=== PATIENT | female | born 1990 | race Two or more races ===

== ENCOUNTER 2022-12-31 14:20 | Inpatient (IN) ==
[2022-12-31] MEDS ORDERED: METHYLERGONOVINE MALEATE 0.2 MG/ML AMP IM PRN (14:59)
[2022-12-31] MEDS ORDERED: OXYTOCIN 30 UNITS/500 ML BAG IV PRN ×3 (14:59→21:05)
[2022-12-31] MEDS ORDERED: LACTATED RINGER'S 1,000 ML IV PRN (14:59)
[2022-12-31] MEDS ORDERED: LIDOCAINE 1% LOCAL 20 ML VIAL INFIL PRN (14:59)
[2022-12-31 15:53] LABS: Hematocrit (blood only) 34.1 % (37.0-47.0); Hemoglobin 11.7 g/dl (12.0-16.0); Mean Corpuscular Hemoglobin 31.7 pg (25.0-34.0); Mean Corpuscular Hgb Conc 34.3 g/dL (32.0-36.0); Mean Corpuscular Volume 92.4 fL (80.0-100.0); Mean Platelet Volume 10.4 fL (9.4-12.4); Platelet Count 210 K/uL (130-400); RDW Coefficient of Variation 12.4 % (11.5-14.5); RDW Standard Deviation 41.5 fL (36.4-46.3); Red Blood Count 3.69 M/uL (4.20-5.40); White Blood Count 8.66 K/ul (4.8-10.8)
[2022-12-31 16:50] LABS: Rubella IgG Ab Non Immune (Immune)
[2022-12-31] MEDS ORDERED: HYDROCORTISONE ACETATE 25 MG SUPP PR PRN (21:05)
[2022-12-31] MEDS ORDERED: bisacodyL 10 MG SUPP PR PRN (21:05)
[2022-12-31] MEDS ORDERED: oxyCODONE/ACETAMINOPHEN 5mg/325mg TAB PO PRN (21:05)
[2022-12-31] MEDS ORDERED: ACETAMINOPHEN 325 MG TAB PO PRN (21:05)
[2022-12-31] MEDS ORDERED: ACETAMINOPHEN W/CODEINE #3 1 TAB PO PRN (21:05)
[2022-12-31] MEDS ORDERED: DIPHTHERIA/TETANUS/PERTUSSIS Vaccine (Tdap, Age 7+yrs) 0.5mL SYR/VL IM ONE (21:05)
[2022-12-31] MEDS ORDERED: BENZOCAINE 20% AER SPR 82.5 GM CAN EXT PRN (21:05)
[2022-12-31] MEDS ORDERED: cefOXitin 2,000 MG in DEXTROSE 5% 50 ML IV STA (21:07)
--- NOTE | 2022-12-31 21:12 | Delivery Summary ---
Vaginal Delivery Summary Date of Service December 31, 2022 Vaginal Delivery Summary Valeri Bender has been followed in our office for care and delivery she was admitted at 39 weeks and 4 days with karson rupture of the membranes. Her blood type so positive. She is a 4 para 4. She is group B strep negative. We are uncertain if she had a gonorrhea and chlamydial culture done during her course. We did a culture during delivery. And she will receive 2 g of Mefoxin postdelivery. After admission to the hospital. She was started on IV Pitocin. The Pitocin was turned up in order to establish a good regular labor pattern. She had a few type I D cells. Went to full dilatation. And with about 4 pushes pushed out a live female infant. Nuchal cord was wrapped around the head. It was slipped over the head. The infant was delivered without difficulty. Cord was allowed to pulse for 1 minute. It was then clamped cut by the father. Cord blood was taken. With IV Pitocin running the placenta was removed intact. Perineum was intact with no lacerations. Estimated blood loss was 100 mL. Patient tolerated delivery well. Apgars are deferred to the nurses.
[2022-12-31] MEDS ORDERED: METHYLERGONOVINE MALEATE 0.2 MG/ML AMP IM STA (22:37)
[2023-01-01 07:16] LABS: Hematocrit (blood only) 31.1 % (37.0-47.0); Hemoglobin 10.7 g/dl (12.0-16.0); Mean Corpuscular Hgb Conc 34.4 g/dL (32.0-36.0); Mean Corpuscular Volume 93.1 fL (80.0-100.0); Mean Platelet Volume 10.7 fL (9.4-12.4); Platelet Count 177 K/uL (130-400); RDW Coefficient of Variation 12.4 % (11.5-14.5); RDW Standard Deviation 42.1 fL (36.4-46.3); Red Blood Count 3.34 M/uL (4.20-5.40); White Blood Count 11.95 K/ul (4.8-10.8)
[2023-01-01] MEDS: DOCUSATE SODIUM 100 MG CAP PO SCH ×2 (08:13→20:06)
[2023-01-01] MEDS: PRENATAL VITAMIN 1 TAB PO SCH (08:13)
[2023-01-01] MEDS: IBUPROFEN 600 MG TAB PO PRN ×2 (08:13→15:47)
--- NOTE | 2023-01-01 10:32 | Obstetrical Progress Note ---
Date of Service January 01, 2023 Assessment & Plan Admission and Anticipated Discharge Date Admission Date: December 31, 2022 OB Progress Note abdomen soft and non tender ambulating well no calf tenderness vaginal bleeding scant hgb 10.7 Results & Data Vital Signs (Past 12 Hours) Vital Signs Temp Pulse Pulse Resp BP BP Pulse Ox 01/01/23 08:31 36.9 C 70 16 118/72 01/01/23 03:19 36.6 C 72 18 101/66 99 12/31/22 23:25 37.1 C 70 18 113/72 99 12/31/22 22:35 18 12/31/22 23:04 82 120/73 12/31/22 22:49 68 119/76 12/31/22 22:37 69 117/73 12/31/22 22:36 79 164/126 H O2 Del Method 01/01/23 08:31 Room Air 01/01/23 03:19 Room Air 12/31/22 23:25 Room Air 12/31/22 22:35 12/31/22 23:04 12/31/22 22:49 12/31/22 22:37 12/31/22 22:36
[2023-01-01] MEDS ORDERED: bisacodyL 5 MG TABEC PO SCH (20:00)
[2023-01-02 06:52] LABS: Hematocrit (blood only) 31.1 % (37.0-47.0); Hemoglobin 10.5 g/dl (12.0-16.0)
[2023-01-02] MEDS: PRENATAL VITAMIN 1 TAB PO SCH (08:40)
[2023-01-02] MEDS: DOCUSATE SODIUM 100 MG CAP PO SCH (08:40)
--- NOTE | 2023-01-02 09:05 | Obstetrical Progress Note ---
Date of Service January 02, 2023 Assessment & Plan Admission and Anticipated Discharge Date Admission Date: December 31, 2022 OB Progress Note abdomen soft and non tender ambulating well no calf tenderness vaginal bleeding scant hgb 10.5 Results & Data Vital Signs (Past 12 Hours) Vital Signs Temp Pulse Pulse Resp BP Pulse Ox O2 Del Method 01/02/23 08:20 37 C 76 20 115/80 Room Air 01/01/23 23:12 36.3 C L 67 16 104/71 99 Room Air
[2023-01-03 11:22] LABS: HBSAG NON-REACTIVE (NON-REACTIVE)
[2023-01-03 13:38] LABS: GC (Neis gonorrhoeae) RNA Not Detected (NotDetected)
== END 2023-01-02 11:55 | disposition home or self-care (01) | DRG 807 ==
LOC: OPB 14:20 → 4S1 14:21 → 4E2 23:35